=== PATIENT | female | born 1950 | race Caucasian/White ===

== ENCOUNTER → 2024-01-16 10:36 | Outpatient (REF) | payer OTHER, SELFPAY | LOC: HWWDC 10:36 | PROVIDERS: ATTENDING PHYSICIAN Obstetrics & Gynecology; FAMILY PHYSICIAN Nurse Practitioner Family | DX: Z12.31 Encounter for screening mammogram for malignant neoplasm of breast (principal) | CPT/HCPCS: 77063; 77067 ==

== ENCOUNTER 2024-04-09 21:31 | Emergency (ER) | payer OTHER, SELFPAY ==
[2024-04-09 21:33] VITALS: BP 185/110
[2024-04-10 00:26] VITALS: BP 186/92
[2024-04-10 02:49] VITALS: BP 180/84
[2024-04-10 03:04] LABS: % Basophils 0.2 % (0-2); % Eosinophils 0.3 % (0-6); % Immature Granulocytes 0.5 % (0-0.5); % Lymphocytes 16.3 % (20.5-51.1); % Monocytes 11.5 % (1.7-9.3); % Neutrophils 71.2 % (42.2-75.2); Absolute Immature Granulocytes 0.1 10^3/uL (0-0.05); Absolute Lymphocytes 1.8 10^3/uL (1.2-3.4); Absolute Monocytes 1.2 10^3/uL (0.1-0.6); Absolute Neutrophils 7.7 10^3/uL (1.4-6.5); Hematocrit 36.8 % (37.0-47.0); Hemoglobin 12.6 g/dL (12.0-16.0); Mean Corp Hgb Conc. 34.2 g/dL (33.0-37.0); Mean Corpuscular Hgb 27.9 pg (27.0-31.0); Mean Corpuscular Volume 81.4 fL (81.0-99.0); Mean Platelet Volume 10.2 fL (7.4-10.4); Nucleated Red Blood Cells % 0 %; Platelet Count 295 10^3/uL (130-400); Red Blood Cell Count 4.52 10^6/uL (4.20-5.40); White Blood Cell Count 10.8 10^3/uL (4.8-10.8)
[2024-04-10 03:27] LABS: ALT (SGPT) 17 U/L (0-35); AST (SGOT) 22 U/L (14-36); Albumin 4.4 g/dl (3.5-5.0); Alkaline Phosphatase 62 U/L (38-126); Blood Urea Nitrogen 18 mg/dl (7-17); Calcium 9.5 mg/dl (8.4-10.2); Carbon Dioxide 29 mmol/L (22-30); Chloride 99 mmol/L (98-107); Glucose 146 mg/dl (70-99); Potassium 3.6 mmol/L (3.5-5.1); Sodium 138 mmol/L (135-145); Total Bilirubin 0.6 mg/dl (0.2-1.3); eGFR > 60.00
--- NOTE | 2024-04-10 03:55 | ED.GENMED ---
History of Present Illness
<OLYA Palumbo - Last Filed: 04/10/24 06:18>
General
Chief Complaint: Headache
Source: patient
Time Seen by Provider: 04/10/24 03:05
Travel History
Have you had any contact with someone who has COVID-19?: No
Do you have any symptoms of coronavirus? Fever > 100 degrees, chills, cough, shortness of breath, sore throat, loss of taste or smell, muscle aches, or headache?: No
History of Present Illness
History of Present Illness:
73 year old female with hx of afib, HTN, hypothyroidism who presents with 6 days of worsening head ache to the back of the head. Pt states she began feeling discomfort to the her head, neck, and back. Then she developed a head pain to the occiput
region that radiates down the neck to the L shoulder blade. Pain is currently 8/10 and is described as a dull pain. She reports associated dizziness and lightheadedness and had an episode of almost passing out last night. She has pain with range of
motion of the neck. Denies trauma or previous injury to the neck or head. Denies shoulder pain, vision changes, vomiting, chest pain, SOB, numbness or tingling to the extremities. Pt saw her chiropractor yesterday with no relief and was advised to
go to the ER. She has not taken anything for pain.
Past History
<OLYA Palumbo - Last Filed: 04/10/24 06:18>
Past History
ED Past Medical History: Hypothyroidism
ED Past Surgical History: None
Social History
Tobacco: Non-smoker
Employment: Not employed
Review of Systems
<OLYA Palumbo - Last Filed: 04/10/24 06:18>
Review of Systems
Allergies reviewed?: Yes
All Other Systems: ROS reviewed and negative except as documented in HPI and ROS
Constitutional: Reports no symptoms
EENT: Reports no symptoms
Respiratory: Reports no symptoms
Cardiac: Reports no symptoms
ABD/GI: Reports no symptoms
: Reports no symptoms
Musculoskeletal: Reports muscle pain, muscle stiffness and neck pain
Skin: Reports no symptoms
Neurological: Reports dizzy and headache
Endocrine: Reports no symptoms
Hematologic/Lymphatic: Reports no symptoms
Psychiatric: Reports no symptoms
Phy Exam
<OLYA Palumbo - Last Filed: 04/10/24 06:18>
General Physical Exam
General Presentation: well appearing and no apparent distress
General age: appears stated age
General Skin: warm and dry
General Habitus: normal
General Mental: alert
General Hydration: appears well hydrated
Cardiovascular Exam
Cardiovascular Exam: regular rate/rhythm, no edema, no gallop and no murmur
Pulmonary Exam
Pulmonary Exam: lungs clear, no respiratory distress, no rales, no crackles, no rhonchi, no wheezing and no cough
Neurological Exam
Neurological Exam: alert, oriented x3, CN II-XII intact, no motor deficits and no sensory deficits
Musculoskeletal Exam
Musculoskeletal Exam: full ROM (bilateral upper extremities), neck pain and other (pain with ROM of neck in flexion, extension, and rotation. Reproducible mild tenderness to palpation to medial L shoulder blade. )
Skin Exam
Skin Exam: normal color and warm/dry
Psychiatric Exam
Psychiatric Exam: normal mood/affect
Course
<OLYA Palumbo - Last Filed: 04/10/24 06:18>
Orders/Labs/Results
Orders:
Orders
04/09/24 21:36
EKG [Electrocardiogram (*1)] Urgent
Reason for Study: Hypertension, Benign
04/09/24 21:37
EKG- Treatment ONCE
04/09/24 21:[address] [CT Head W/o Iv Contrast] Urgent
Comment:
Reason For Exam: headache
04/09/24 21:40
CBC/With Diff [Complete Blood Count/With Diff] Urgent
CMP [Comprehensive Metabolic Panel] Urgent
04/10/24 02:57
B12 [Vitamin B12] Urgent
Free T4 Urgent
TSH Reflex To Free T4 Urgent
04/10/24 04:43
Lisinopril [Zestril] 10 mg PO NOW STA
04/10/24 05:17
Acetaminophen [Tylenol] 650 mg PO NOW STA
04/10/24 05:55
Ibuprofen [Motrin] 600 mg PO NOW STA
Abnormal Lab Results
04/10/24
02:57
Hct 36.8 L %
(37.0-47.0)
Abs Immat Gran (auto) 0.1 H 10^3/uL
(0-0.05)
Absolute Neuts (auto) 7.7 H 10^3/uL
(1.4-6.5)
Absolute Monos (auto) 1.2 H 10^3/uL
(0.1-0.6)
Lymphocytes % 16.3 L %
(20.5-51.1)
Monocytes % 11.5 H %
(1.7-9.3)
BUN 18 H mg/dl
(7-17)
Glucose 146 H mg/dl
(70-99)
TSH (Reflex) 0.30 L uIU/ml
(0.47-4.68)
04/10/24 02:57
04/10/24 02:57
Vital Signs
Initial and Last Documented VS:
Initial Vital Signs
Temp Pulse Resp BP Pulse Ox
98.2 F 102 17 185/110 99
04/09/24 21:33 04/09/24 21:33 04/09/24 21:33 04/09/24 21:33 04/09/24 21:33
Last Documented Vital Signs
Temp Pulse Resp BP Pulse Ox
98.2 F 75 16 148/84 96
04/09/24 21:33 04/10/24 05:26 04/10/24 05:26 04/10/24 05:26 04/10/24 05:26
<Mauri Ledesma, DO - Last Filed: 04/10/24 06:51>
Orders/Labs/Results
Orders:
Orders
04/09/24 21:36
EKG [Electrocardiogram (*1)] Urgent
Reason for Study: Hypertension, Benign
04/09/24 21:37
EKG- Treatment ONCE
04/09/24 21:[address] [CT Head W/o Iv Contrast] Urgent
Comment:
Reason For Exam: headache
04/09/24 21:40
CBC/With Diff [Complete Blood Count/With Diff] Urgent
CMP [Comprehensive Metabolic Panel] Urgent
04/10/24 02:57
B12 [Vitamin B12] Urgent
Free T4 Urgent
TSH Reflex To Free T4 Urgent
04/10/24 04:43
Lisinopril [Zestril] 10 mg PO NOW STA
04/10/24 05:17
Acetaminophen [Tylenol] 650 mg PO NOW STA
04/10/24 05:55
Ibuprofen [Motrin] 600 mg PO NOW STA
Abnormal Lab Results
04/10/24
02:57
Hct 36.8 L %
(37.0-47.0)
Abs Immat Gran (auto) 0.1 H 10^3/uL
(0-0.05)
Absolute Neuts (auto) 7.7 H 10^3/uL
(1.4-6.5)
Absolute Monos (auto) 1.2 H 10^3/uL
(0.1-0.6)
Lymphocytes % 16.3 L %
(20.5-51.1)
Monocytes % 11.5 H %
(1.7-9.3)
BUN 18 H mg/dl
(7-17)
Glucose 146 H mg/dl
(70-99)
TSH (Reflex) 0.30 L uIU/ml
(0.47-4.68)
04/10/24 02:57
04/10/24 02:57
Vital Signs
Initial and Last Documented VS:
Initial Vital Signs
Temp Pulse Resp BP Pulse Ox
98.2 F 102 17 185/110 99
04/09/24 21:33 04/09/24 21:33 04/09/24 21:33 04/09/24 21:33 04/09/24 21:33
Last Documented Vital Signs
Temp Pulse Resp BP Pulse Ox
98.2 F 75 16 148/84 96
04/09/24 21:33 04/10/24 05:26 04/10/24 05:26 04/10/24 05:26 04/10/24 05:26
<OLYA Palumbo - Last Filed: 04/10/24 06:18>
MDM/Problems Addressed
Differential Diagnosis Includes:
muscle sprain/strain, symptomatic hypertension, cervical radiculopathy
MDM/Problems Addressed:
73 year old female who presents with back of the head pain that radiates down the neck to the L shoulder blade that began 6 days ago.
Chronic conditions affecting care: HTN, Arrhythmia (afib) and Other (hypothyroidism)
<OLYA Palumbo - Last Filed: 04/10/24 06:18>
*Critical Care Note
Total Time (30-74mins, 75-104mins- exclusive of procedures): Not Applicable
<OLYA Palumbo - Last Filed: 04/10/24 06:18>
Update Note
Update Note:
04/10/24 0554: Pt reevaluated. BP decreased to 148/84 after Lisinopril. Pt also took a dose of tylenol. No change to head ache. Pt offered ibuprofen and she is agreeable.
<Mauri Ledesma DO - Last Filed: 04/10/24 06:51>
Update Note
Update Note:
04/10/24 0554: Pt reevaluated. BP decreased to 148/84 after Lisinopril. Pt also took a dose of tylenol. No change to head ache. Pt offered ibuprofen and she is agreeable.
04/10/2024 0650 AM: Patient resting comfortably. She states her headache is improved somewhat. She still does not want any further medications. She will follow-up with neurology. Patient being discharged in improved condition.
ED Attending Note
<OLYA Palumbo - Last Filed: 04/10/24 06:18>
-
Portions of this chart may have been created with voice recognition software.� Occasional wrong word or��sound alike� substitutions may have occurred due to the inherent limitations of voice recognition software.
<Mauri Ledesma DO - Last Filed: 04/10/24 06:51>
ED Attending Note
Patient seen and examined by attending physician: Yes
I performed the substantive portion of visit, reviewed & personally made and approve the management plan that is documented in note by myself or MICHELLE.: Yes
ED Attending Note:
This is a pleasant 73-year-old female who presents with 6 days of progressively worsening headache. She states that the headache is in the left posterior part of the head. She went to the chiropractor for treatment. The chiropractor was unable to
help her and advised her to come to the emergency department. She came to the emergency department for evaluation of headache.. She denies head trauma. Denies chest pain or shortness of breath. Patient is adverse to pain medications. She did
not take anything for this pain. Patient was seen in conjunction with the PA student. I have reviewed and agree with the history and treatment plan presented. On my independent physical exam, patient is awake, alert, and oriented x3, sitting on
the side of bed in minimal acute distress. Funduscopic exam is within normal limits pupils are equal and round and reactive to light and accommodation. No vertical or horizontal nystagmus. No nuchal rigidity. No midline neck tenderness. Heart
is regular rate and rhythm. Lungs are clear to auscultation bilaterally. No wheezes rales or rhonchi present. Moves all 4 extremities. Cranial nerves III through XII grossly intact
Differential diagnosis includes migraine headache, atypical migraine, musculoskeletal pain
Initially, patient refused fluids, and any medications. She stated that she is here because 'she wants to know why she has a headache. '. I was able to tell her that she did not have a bleed or any other obvious CAT scan findings. Given that she
had no focal neurodeficits, no nuchal rigidity, no fever or chills I feel that CVA, meningitis are less likely.
Patient is still considering any type of intervention at this time.
Gave patient a copy of the labs and CT scan preliminary report.
Discharge Plan
Departure
Patient Disposition: Home (Routine Discharge)
Date of Disposition: 04/10/24
Time of Disposition: 06:49
Patient with high blood pressure during this ER visit?: Yes
Condition: Good
Discharge Problem:
Headache
Instructions: Headache, Adult (DC)
Prescriptions:
No Action
levothyroxine 88 MCG tablet
88 mcg PO DAILY
Patient Comments:
Pt not positive but thinks she took all her am meds today about 7am
montelukast 10 MG tablet
10 mg PO QPM
Cardia Xt
120 mg PO DAILY
Patient Comments:
(24hr)
triamterene-hydrochlorothiazid 37.5 MG/25 MG capsule
1 cap PO DAILY
oxycodone-acetaminophen 5 MG/325 MG tablet
1 tab PO Q6HPRN PRN (Reason: pain) Qty: 10 0RF
Referrals:
Esau Abbott MD [Active] - Call in 1-3 days for appt
UNKNOWN - PT DOES,NOT KNOW [Family Provider] -
Activity Restrictions/Additional Instructions:
It was a pleasure meeting you and taking part in your care. We hope for your continued healing and wellness.
Please read discharge instructions in their entirety. However, they are for general education and may not describe your exact diagnosis at discharge. Information on your ER visit and medical conditions were discussed with you along with appropriate
follow up information...
If indicated, please take your medications as instructed and indicated on discharge paperwork.
Please schedule a follow up appointment as directed. Call to schedule an appointment
Please return to the emergency department with ANY change in, persisting, or worsening of symptoms. If any of your symptoms do not improve, or persist, or become more severe within 6-12 hours, please return to the emergency department for further
care.
Please return to the emergency department if you develop a headache, neck pain/stiffness, fever greater than 100.4F, chest pain, shortness of breath, persistent nausea, vomiting, slurred speech, difficulty walking, numbness/tingling, weakness, signs
of infection or any other symptoms that are worrisome to you.
If you have any questions or concerns please do not hesitate to call the Hospital at
Interventions
Interventions:
*Risk Screen - Suicide Last Done: 04/09/24 21:33
*General Assessment Last Done: 04/09/24 21:33
*Neglect/Abuse Screening Last Done: 04/09/24 21:33
ED- Neurological Assessment Last Done: 04/10/24 03:00
Discharge Date and Time
Print Language: KYRGYZ
[2024-04-10 04:10] LABS: Vitamin B12 869 pg/ml (239-931)
[2024-04-10 04:19] LABS: Free T4 1.25 ng/dl (0.78-2.19)
[2024-04-10] MEDS: ZESTRIL 10 MG PO (04:59)
[2024-04-10] MEDS: TYLENOL 650 MG PO (05:23)
[2024-04-10 05:26] VITALS: BP 148/84
[2024-04-10] MEDS: MOTRIN 600 MG PO (06:05)
== END 2024-04-10 07:36 | disposition home or self-care (01) ==
LOC: EMR 21:31
PROVIDERS: Emergency Medicine; EMERGENCY PHYSICIAN Student in an Organized Health Care Education/Training Program; FAMILY PHYSICIAN Nurse Practitioner Family
DX: R51.9 Headache, unspecified (principal); I10 Essential (primary) hypertension; E03.9 Hypothyroidism, unspecified
CPT/HCPCS: 99284; 70450; 80053; 82607; 84439; 84443; 85025; 93005

== ENCOUNTER → 2024-05-14 10:54 | Outpatient (REF) | payer OTHER, SELFPAY | LOC: HWRAD 10:54 | PROVIDERS: ATTENDING PHYSICIAN Nurse Practitioner Family | DX: R10.32 Left lower quadrant pain (principal) | CPT/HCPCS: 76882 ==

== ENCOUNTER → 2024-05-24 12:41 | Outpatient (REF) | payer OTHER, SELFPAY | LOC: HWRAD 12:41 | PROVIDERS: ATTENDING PHYSICIAN Nurse Practitioner Family | DX: R19.09 Other intra-abdominal and pelvic swelling, mass and lump (principal) | CPT/HCPCS: 72193; Q9967 ==

== ENCOUNTER → 2024-06-03 06:50 | Outpatient (REF) | payer OTHER, SELFPAY ==
[2024-06-03 07:44] VITALS: BP 135/66; BP_SYST 70
[2024-06-03 10:21] VITALS: BP 134/70
== END ==
LOC: RADI 06:50
PROVIDERS: ATTENDING PHYSICIAN Nurse Practitioner Family
DX: R19.00 Intra-abdominal and pelvic swelling, mass and lump, unspecified site (principal); Z53.8 Procedure and treatment not carried out for other reasons
CPT/HCPCS: 76380

== ENCOUNTER → 2024-07-03 10:57 | Outpatient (REF) | payer OTHER, SELFPAY | LOC: MRI 3T 10:57 | PROVIDERS: ATTENDING PHYSICIAN Surgery; FAMILY PHYSICIAN Nurse Practitioner Family | DX: K63.89 Other specified diseases of intestine (principal) | CPT/HCPCS: 72197; 74183; A9585 ==

== ENCOUNTER 2024-08-16 12:54 | Inpatient (IN) | payer OTHER, SELFPAY ==
[2024-08-08 09:04] VITALS: BMI 30.7
[2024-08-08 10:33] LABS: Hematocrit 38.8 % (37.0-47.0); Mean Corp Hgb Conc. 33.5 g/dL (33.0-37.0); Mean Corpuscular Hgb 29.1 pg (27.0-31.0); Mean Corpuscular Volume 86.8 fL (81.0-99.0); Mean Platelet Volume 11.4 fL (7.4-10.4); Platelet Count 266 10^3/uL (130-400); Red Blood Cell Count 4.47 10^6/uL (4.20-5.40); Red Cell Dist. Width 13.8 % (11.5-14.5); White Blood Cell Count 6.7 10^3/uL (4.8-10.8)
[2024-08-08 11:08] LABS: ALT (SGPT) 16 U/L (0-35); AST (SGOT) 21 U/L (14-36); Albumin 4.1 g/dl (3.5-5.0); Alkaline Phosphatase 52 U/L (38-126); Blood Urea Nitrogen 28 mg/dl (7-17); Calcium 9.4 mg/dl (8.4-10.2); Carbon Dioxide 28 mmol/L (22-30); Chloride 100 mmol/L (98-107); Estimated Creatinine Clearance 54 ml/min; Glucose 101 mg/dl (70-99); Potassium 3.7 mmol/L (3.5-5.1); Sodium 140 mmol/L (135-145); Total Bilirubin 0.5 mg/dl (0.2-1.3); eGFR 59.86
[2024-08-16] VITALS (17 sets, daily range): BP systolic 98–144; BP diastolic 49–75; BMI 30.7
--- NOTE | 2024-08-16 12:08 | HP.FOC2 ---
Focused History & Physical
Chief Complaint
HPI:
Chief Complaint: Small bowel mass
HPI / Indication for Planned Procedure: Patient is a 73-year-old female who has been recently found to have an incidental small bowel/mesenteric mass during radiographic imaging for a possible left inguinal hernia. CT imaging identified a 5.2 cm
mass with surrounding fat stranding closely associated with adjacent loops of small bowel within the central abdomen. She was subsequently referred for attempted IR biopsy which was unsuccessful at finding any clear window. After my initial
evaluation we obtained MRI enterography which confirmed the presence of an enhancing mass involving a small bowel loop in the adjacent mesentery with a small nodular foci of enhancement within the mesentery adjacent to the mass but no additional
periaortic or aortocaval lymphadenopathy. She presents today for definitive surgical resection.
Relevant Past Medical History: Other (Allergic rhinitis, hypoparathyroidism, hypertension, history of anemia, hypothyroidism, vitiligo, asthma)
Relevant Social History: Negative
Relevant Family History: Negative
Relevant Past Surgical History: Positive for (Pelvic floor surgery, vaginal polypectomy)
Review of Systems
Review of Pertinent Systems: All Systems Negative
Medication
See Medication form for detailed medications: Yes
Medication List (including Herbals & OTC):
montelukast 10 mg tablet 10 mg PO QPM 06/16/11
triamterene 37.5 mg-hydrochlorothiazide 25 mg capsule 1 cap PO DAILY 06/16/11
cyanocobalamin (vitamin B-12) 1,000 mcg tablet (Vitamin B-12) 1,000 mcg PO DAILY 06/03/24
diltiazem HCl 120 mg capsule,extended release 24 hr (Cartia XT) 120 mg PO HS 06/03/24
levothyroxine 125 mcg tablet 125 mcg PO Q48H 06/03/24
lisinopril 5 mg tablet 5 mg PO HS 06/03/24
albuterol sulfate 90 mcg/actuation aerosol inhaler 2 puff inhalation Q6H PRN SOB 08/09/24
cyanocobalamin (vitamin B-12) 1,000 mcg/mL injection syringe 1,000 mcg MONTHLY 08/09/24
levothyroxine 150 mcg tablet 150 mcg PO Q48H 08/09/24
Medications Reviewed: Yes
Allergies and Reactions
Patient has Allergies: Yes
Noted Allergies and Reactions:
Allergy/AdvReac Type Severity Reaction Status Date / Time
acetaminophen [From Percocet] Allergy DIZZINESS Verified 08/09/24 09:39
adhesive Allergy Rash Verified 08/09/24 09:39
oxycodone [From Percocet] Allergy DIZZINESS Verified 08/09/24 09:39
codeine AdvReac Nausea Verified 08/09/24 09:39
cyclobenzaprine AdvReac WEAKNESS Verified 08/09/24 09:39
Pertinent Physical Exam
All Other Systems: Negative
Head/Neck: Normal
Lungs: Normal
Heart: Normal
Abdomen: Normal and Other (Reducible left inguinal hernia)
Extremities: Normal
Neurological: Normal
Diagnosis / Assessment
73-year-old female presenting for management of recently discovered small bowel/mesenteric mass
Plan / Procedure
Diagnostic laparoscopy, laparoscopic assisted small bowel resection/resection of mesenteric mass
Anesthesia/Sedation to be done by Anesthesia Provider: Yes
--- NOTE | 2024-08-16 13:48 | W.SUR.PREOP ---
Pre-Operative Surgical Note
-
I have examined this patient prior to the performance of the scheduled procedure.
The patient's condition is unchanged from the time of the current History and
Physical and the patient is able to undergo the scheduled procedure.
[2024-08-16] MEDS: TYLENOL 1000 MG PO (13:53)
[2024-08-16] MEDS: NORMOSOL-R/PLASMALYTE-A 1000 IV (13:54)
[2024-08-16] MEDS: DILAUDID 0.5 MG IV ×2 (17:04→17:45)
--- NOTE | 2024-08-16 17:05 | W.IMMPOSTOP ---
Addendum entered and electronically signed by Manuel Santacruz MD 08/16/24 17:35:
#[id number]
Original Note:
Surgical Immed Post Op Note
-
Primary Surgeon: Neeta
Assisting Surgeon: Kely David PA-c
Pre-op Diagnosis: Small Bowel Mass
Post-op Diagnosis: Small Bowel Mass
Procedure Performed: Laparoscopic Assisted SBR
Anesthesia Type: GETA + 0.25% Marcaine
Specimen / Cultures: Small Bowel Mass
Estimated Blood Loss: 20mL
Complications: none immediate
Operative Findings: small bowel mass infiltrating into small bowel mesentery located within distal jejunum ~100cm from ligament of Treitz. approximately 60cm small bowel resected with grossly negative bowel and mesenteric margins. total small
bowel length after resection ~280cm. side to side anastomosis with PORTER purple 80 stapler. no evidence of metastatic disease.
family updated post op in waiting area
The assistance of Kely Edwards was required due to the complexity of the procedure. During the procedure Kely kidd assisted with retraction, resection/anastomosis, and closure of the surgical sites.
[2024-08-16] MEDS: DEMEROL 12.5 MG IV ×2 (18:05→18:26)
[2024-08-16] MEDS: NSS 1000 IV (18:11)
--- NOTE | 2024-08-16 19:38 | PTCARENOTE ---
patient arrived to @ south from PACU. AAOx3, very pleasant, oriented to room. 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 Rico draining clear yellow urine, IVF infusing per order. VSS, NSR on monitor. at bed side. Assessment on going.
--- NOTE | 2024-08-16 19:44 | SUR.PHASEI ---
patient in pacu post bowel resection, medicated for pain and shivers - with Dilaudid and demerol - pain as high as 8 - down to 0/10 at 1900. Vss - bp lower after pain controlled but WNL. incision line clean - Dr Santacruz visits in pacu. urine
output adequate - transfer to [address] [place] [address] when bed available and hand off at bedside. Family kept updated.
[2024-08-16] MEDS: LOPRESSOR IV ×2 (19:53→23:59)
[2024-08-16] MEDS: OFIRMEV 100 IV (21:34)
[2024-08-17] MEDS: NSS 1000 IV ×3 (01:30→19:49)
[2024-08-17] MEDS: OFIRMEV 100 IV ×2 (02:04→07:47)
[2024-08-17 03:19] VITALS: BP 120/55
[2024-08-17] MEDS: DILAUDID 0.25 MG IV (04:48)
[2024-08-17 05:37] LABS: Mean Corp Hgb Conc. 33.3 g/dL (33.0-37.0); Mean Corpuscular Hgb 28.7 pg (27.0-31.0); Mean Corpuscular Volume 86.1 fL (81.0-99.0); Mean Platelet Volume 11.1 fL (7.4-10.4); Platelet Count 276 10^3/uL (130-400); Red Blood Cell Count 4.18 10^6/uL (4.20-5.40); Red Cell Dist. Width 13.8 % (11.5-14.5); White Blood Cell Count 14.2 10^3/uL (4.8-10.8)
[2024-08-17 06:02] LABS: Blood Urea Nitrogen 22 mg/dl (7-17); Calcium 8.5 mg/dl (8.4-10.2); Carbon Dioxide 27 mmol/L (22-30); Chloride 100 mmol/L (98-107); Estimated Creatinine Clearance 60 ml/min; Glucose 138 mg/dl (70-99); Potassium 4.3 mmol/L (3.5-5.1); Sodium 137 mmol/L (135-145); eGFR > 60.00
[2024-08-17] MEDS: LOPRESSOR IV ×3 (06:21→18:13)
[2024-08-17 06:55] VITALS: BP 120/56
--- NOTE | 2024-08-17 10:26 | W.PN.GS2 ---
Addendum entered and electronically signed by Manuel Santacruz MD 08/17/24 10:35:
pt seen and examined with SUPERVISOR FIBER LOCKING , agree with documented progress note
reports incisional pain
no nausea
has not been OOB yet
AFVSS
NAD AAOx3
ABD: soft, ND, mild TTP at incisions
incisions with glue dressing, no erythema, no drainage
A/P: POD#1 lap assisted SBR for mid small bowel mass
clear liquid diet for comfort
start toradol ATC
lovenox for VTEp
okay for stewart to come out when ambulatory
Original Note:
Today's Communication / Plan
-
Trial of clears
Assessment / Plan
-
73 yo female presenting for operative management of small bowel mass now POD #1 lap assisted SBR
AFVSS
Labs stable post op with mild reactive leukocytosis
Await return of bowel function
--Trial of clears
--D/C ofirmev and start IV toradol, continue prn dilaudid
--c/w IVF
--Trend labs
--OOB/IS
--hold PO meds until more signs of ROBF
--discontinue stewart once OOB/ambulating
--VTE ppx with lovenox and scds
Subjective Data
-
Date of Service: August 17, 2024
Patient seen and examined at bedside with Dr. Santacruz. Denies n/v. Not passing flatus yet. Some soreness to midline incision. Questions addressed.
Objective Data
-
Intake and Output
08/16/24 08/17/24 08/18/24
06:59 06:59 06:59
Intake Total 1984
Output Total 650 / 650
Balance 1335 / 1335
Intake:
Oral fluids 20 /
IV fluids (Total) 1765 / 1765
normosol 200 / 200
nss 125 / 125
IV piggybacks 200 / 200
Output:
Urine, Stewart 650 / 650
Vital Signs
Temp Pulse Resp BP Pulse Ox
98.9 F 86 14 120/56 95
08/17/24 06:55 08/17/24 06:55 08/17/24 06:55 08/17/24 06:55 08/17/24 06:55
Lab Results
08/17/24 04:34
08/17/24 04:34
Calcium 8.5 mg/dl (8.4-10.2) 08/17/24 04:34
Total Bilirubin 0.5 mg/dl (0.2-1.3) 08/08/24 08:56
AST 21 U/L (14-36) 08/08/24 08:56
ALT 16 U/L (0-35) 08/08/24 08:56
Alkaline Phosphatase 52 U/L (38-126) 08/08/24 08:56
Total Protein 7.0 g/dl (6.3-8.2) 08/08/24 08:56
Albumin 4.1 g/dl (3.5-5.0) 08/08/24 08:56
Physical Exam
-
NAD
ABD soft, mild incisional tenderness, ND, SUPERVISOR FIBER LOCKING
Incisions well approximated with intact glue
[2024-08-17] MEDS: TORADOL 10 MG IV ×3 (10:53→22:54)
[2024-08-17 10:57] VITALS: BP 127/65
--- NOTE | 2024-08-17 13:57 | CM ---
CM met with pt and family at bedside.
Confirmed PCP is Cheyanne Ambriz and pharmacy is [facility] in [facility]. + prescription plan.
Prior to admission pt ind with amb using no AD and ind with adl's. No DME needs prior. + It Program Auditor.
Pt has no HC or SNF history.
Resides with spouse in 2SH bedroom/bathroom on 2nd floor, powder room on first, 1+ 1 HEIDE home.
Anticipate no skilled dc needs.
CM to follow and watch for needs.
[2024-08-17 15:02] VITALS: BP 133/60
[2024-08-17] MEDS: LOVENOX 40 MG SC (18:21)
[2024-08-17 19:10] VITALS: BP 131/63
[2024-08-17] MEDS: LOPRESSOR 5 MG IV (22:55)
[2024-08-17 23:37] VITALS: BP 130/61
[2024-08-18 03:54] VITALS: BP 141/73
[2024-08-18] MEDS: NSS 1000 IV (04:17)
[2024-08-18] MEDS: TORADOL 10 MG IV ×4 (05:48→22:57)
[2024-08-18] MEDS: LOPRESSOR 5 MG IV (05:49)
[2024-08-18 07:00] VITALS: BP 148/70
[2024-08-18 08:33] LABS: Hematocrit 31.7 % (37.0-47.0); Hemoglobin 10.6 g/dL (12.0-16.0); Mean Corp Hgb Conc. 33.4 g/dL (33.0-37.0); Mean Corpuscular Hgb 29.4 pg (27.0-31.0); Mean Corpuscular Volume 87.8 fL (81.0-99.0); Mean Platelet Volume 11.3 fL (7.4-10.4); Platelet Count 238 10^3/uL (130-400); Red Blood Cell Count 3.61 10^6/uL (4.20-5.40); White Blood Cell Count 8.4 10^3/uL (4.8-10.8)
[2024-08-18] MEDS: DYAZIDE 1 CAPSULE PO (08:48)
[2024-08-18] MEDS: SYNTHROID 125 MCG PO (08:48)
[2024-08-18 09:09] LABS: Blood Urea Nitrogen 22 mg/dl (7-17); Carbon Dioxide 26 mmol/L (22-30); Chloride 105 mmol/L (98-107); Estimated Creatinine Clearance 54 ml/min; Glucose 90 mg/dl (70-99); Potassium 3.9 mmol/L (3.5-5.1); Sodium 139 mmol/L (135-145); eGFR 59.86
--- NOTE | 2024-08-18 10:17 | W.PN.GS2 ---
Addendum entered and electronically signed by Manuel Santacruz MD 08/18/24 10:28:
Patient seen and examined with nurse practitioner. Agree with documented progress note.
Comfortably sitting up in couch in hospital room
Tolerating clear liquids, no nausea, no abdominal pain or cramps other than incisional discomfort
Passing flatus on occasion, no bowel movements
Does not feel distended or bloated
AFVSS
NAD AAOx3
ABD: Soft, nondistended, mild incisional tenderness, no rebound/rigidity/guarding
Incisions with glue dressings no open wounds or drainage minimal localized ecchymosis, no significant erythema
A/P: POD #2 lap assisted small bowel resection for small bowel mass
Full liquid diet and cautious dietary advancement as tolerated with low fibrous foods and smaller portions
Dietary counseling provided
Okay to stop IV fluids
Continue Toradol
Original Note:
Today's Communication / Plan
-
Advance diet as tolerated, resume home meds
Assessment / Plan
-
73 yo female presenting for operative management of small bowel mass now POD #2 lap assisted SBR
AFVSS
Labs stable post op, leukocytosis resolved. Mild acute anemia secondary to intraoperative losses/hemodilution. No active bleeding suspected.
Passing flatus
Voiding s/p removal of stewart
Following expected post op course
--Full liquid diet and ADAT to LRD
--Continue IV toradol, continue prn dilaudid
--c/w IVF
--OOB/IS
--Resume home PO meds and d/c IV metoprolol and telemetry
--Path pending
--VTE ppx with lovenox and scds
Subjective Data
-
Date of Service: August 18, 2024
Patient seen and examined at bedside with Dr. Santacruz. Denies pain or nausea. Tolerating clears. Family bringing in food from home as she does not like the food from the hospital kitchen. Passing flatus.
Objective Data
-
Intake and Output
08/17/24 08/18/24 08/19/24
06:59 06:59 06:59
Intake Total 1984 4520 / 4520
Output Total 650 / 650 1050 / 1050
Balance 1335 / 1335 3470 / 3470
Intake:
Oral fluids 20 / 20 1640 / 1640
IV fluids (Total) 1765 / 1765 2880 / 2880
normosol 200 / 200
nss 125 / 125
IV piggybacks 200 / 200
Output:
Urine, Stewart 650 / 650 150 / 150
Urine, Voided 900 / 900
Other:
Number of approximated SMALL 2
amounts of urine
Number of approximated MODERATE 1
amounts of urine
Vital Signs
Temp Pulse Resp BP Pulse Ox
97.6 F 70 16 148/70 97
08/18/24 07:00 08/18/24 08:48 08/18/24 07:00 08/18/24 08:48 08/18/24 07:00
Lab Results
08/18/24 06:30
08/18/24 06:30
Calcium 8.0 mg/dl (8.4-10.2) L 08/18/24 06:30
Total Bilirubin 0.5 mg/dl (0.2-1.3) 08/08/24 08:56
AST 21 U/L (14-36) 08/08/24 08:56
ALT 16 U/L (0-35) 08/08/24 08:56
Alkaline Phosphatase 52 U/L (38-126) 08/08/24 08:56
Total Protein 7.0 g/dl (6.3-8.2) 08/08/24 08:56
Albumin 4.1 g/dl (3.5-5.0) 08/08/24 08:56
Physical Exam
-
NAD
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
Incisions well approximated with intact glue, erythema to midline incision
[2024-08-18 14:38] VITALS: BP 120/63
[2024-08-18] MEDS: SINGULAIR 10 MG PO (17:39)
[2024-08-18] MEDS: LOVENOX 40 MG SC (17:39)
[2024-08-18] MEDS: ZESTRIL 5 MG PO (22:56)
[2024-08-18] MEDS: CARDIZEM CD 120 MG PO (22:56)
[2024-08-18 23:04] VITALS: BP 142/72
[2024-08-19] MEDS: SYNTHROID 150 MCG PO (05:23)
[2024-08-19] MEDS: TORADOL 10 MG IV (05:23)
--- NOTE | 2024-08-19 07:20 | W.PN.GS2 ---
Addendum entered and electronically signed by Prince Edwards MD 08/19/24 11:07:
I saw and examined the patient independently.
The Senior Administrative Associate's note was reviewed and I agree with the note, assessment and plan except where noted below.
Comment: This is a 73-year-old female postoperative day 3 lap assisted SBR for small bowel mass. Doing well, expected postoperative course.
Low residue diet
Dispo planning
Original Note:
Today's Communication / Plan
-
Discharge home with instructions for 2-3w f/u. Will leave wound care/activity instructions in discharge paperwork.
Assessment / Plan
-
73 yo F who presented to for operative management of SB mass after failed biopsy, POD #3 lap assisted SBR
- AVSS
- On LRD, tolerating well
- IV pain requirements minimal, OK to take PO at home
- Ambulating well, at baseline
- Resume home PO meds
- Pathology pending
OK to discharge home today with OP F/u.
Subjective Data
-
No acute events overnight. Feeling well, ambulating well. She has not had a BM yet, but is passing gas and able to urinate. She has minimal/no abdominal pain. There were no acute events overnight.
Objective Data
-
Intake and Output
08/18/24 08/19/24 08/20/24
06:59 06:59 06:59
Intake Total 4520 / 4520 1919
Output Total 1050 / 1050
Balance 3470 / 3470 1919
Intake:
Oral fluids 1640 / 1640 1919
IV fluids (Total) 2880 / 2880
Output:
Urine, Rico 150 / 150
Urine, Voided 900 / 900
Other:
Number of approximated SMALL 2
amounts of urine
Number of approximated MODERATE 1
amounts of urine
Number of approximated LARGE 2
amounts of urine
Vital Signs
Temp Pulse Resp BP Pulse Ox
98.3 F 76 20 142/72 97
08/18/24 23:04 08/18/24 23:04 08/18/24 23:04 08/18/24 23:04 08/18/24 23:04
Lab Results
08/18/24 06:30
08/18/24 06:30
Calcium 8.0 mg/dl (8.4-10.2) L 08/18/24 06:30
Total Bilirubin 0.5 mg/dl (0.2-1.3) 08/08/24 08:56
AST 21 U/L (14-36) 08/08/24 08:56
ALT 16 U/L (0-35) 08/08/24 08:56
Alkaline Phosphatase 52 U/L (38-126) 08/08/24 08:56
Total Protein 7.0 g/dl (6.3-8.2) 08/08/24 08:56
Albumin 4.1 g/dl (3.5-5.0) 08/08/24 08:56
Physical Exam
-
General: NAD. Well appearing, nontoxic. AAOx3
Abdominal: Soft, nondistended, NTTP. Port sites are clean and dry with surgical glue. There is some scattered ecchymotic lesions surrounding the umbilicus which are nonblanching, nontender. The umbilical surgical site is clean and well appearing
without drainage, erythema or induration.
[2024-08-19 07:51] VITALS: BP 146/71
[2024-08-19] MEDS: DYAZIDE 1 CAPSULE PO (07:53)
--- NOTE | 2024-08-19 09:34 | W.DCSUMMARY ---
Discharge Summary
Discharge Data
Date of Admission: 08/16/24
Date of Discharge: 08/19/24
-
Pending Results: No
Hospital Course
Ms Riely is a 73 yo female who was incidentally found to have a small bowel/mesenteric mass on recent abdominal imaging who presented this admission for scheduled operative management. She underwent a laparoscopic assisted small bowel resection
and tolerated the procedure well without complication. Pathology was sent and pending. Post operatively, she was able to have diet advanced and well tolerated with evidence of bowel recovery. Pain was well managed with NSAIDs. She was discharged to
home for outpatient follow up in the coming weeks.
Discharge Plan
-
Patient Disposition: Home (Routine Discharge)
Discharge Diagnosis/Procedures: Laparoscopic assisted small bowel resection
Condition: Good
Diet: Low Fiber
Activity: No strenuous activity
Additional Activity: Do not lift over 15lbs for the next 4-6 weeks. Wear abdominal binder for comfort with activity.
Driving Restrictions: Wait until comfortable twisting
Bathing Restrictions: OK to Shower
Wound Care: Wash incisions gently with soap and water. The glue over your incisions will flake off on its own in 2-3 weeks. Beneath the glue are dissolving sutures. Avoid picking or scrubbing off the glue. Do not apply creams or ointments to your
incisions.
Activity Restrictions/Additional Instructions:
Call your surgeon if you develop nausea with vomiting, worsening abdominal pain or a fever >100.5
Referrals:
Cheyanne Santamaria CRNP [Family Provider] -
Manuel Santacruz MD [Active] - in two to three weeks
Prescriptions:
New
ibuprofen 200 mg tablet
400 - 600 mg PO Q6HPRN PRN (Reason: moderate pain) Qty: 1 0RF
Continued
montelukast 10 MG tablet
10 mg PO QPM
triamterene-hydrochlorothiazid 37.5 MG/25 MG capsule
1 cap PO DAILY
cyanocobalamin (vitamin B-12) [Vitamin B-12] 1,000 mcg Tablet
1,000 mcg PO DAILY
levothyroxine 125 mcg Tablet
125 mcg PO Q48H
diltiazem HCl [Cartia XT] 120 mg Capsule,Extended Release 24hr
120 mg PO HS
lisinopril 5 mg Tablet
5 mg PO HS
levothyroxine 150 mcg Tablet
150 mcg PO Q48H
cyanocobalamin (vitamin B-12) 1,000 mcg/mL Syringe
1,000 mcg MONTHLY
albuterol sulfate 90 mcg/actuation Hfa Aerosol Inhaler
2 puff INHALATION Q6H PRN (Reason: SOB)
Discharge Orders:
Discharge Patient (As Directed); Ordered 08/19/24
Ordered By: Delmy Alonso
Discharge Date and Time
Print Language: CHADIAN
--- NOTE | 2024-08-19 10:04 | CM ---
Pt for discharge today
Met with pt
Reports has ride home when discharged
Reviewed IMM
Plan - home no needs
== END 2024-08-19 11:12 | disposition home or self-care (01) | DRG 983 ==
LOC: 2 SOUTH 12:54
PROVIDERS: ADMITTING PHYSICIAN Surgery; FAMILY PHYSICIAN Nurse Practitioner Family
PROC: 0DB80ZZ Excision of Small Intestine, Open Approach (ICD-10-PCS; 2024-08-16)
DX: D48.114 Desmoid tumor, intraabdominal (principal); R19.09 Other intra-abdominal and pelvic swelling, mass and lump; K40.90 Unilateral inguinal hernia, without obstruction or gangrene, not specified as recurrent; E03.9 Hypothyroidism, unspecified; I10 Essential (primary) hypertension; J45.909 Unspecified asthma, uncomplicated; E20.9 Hypoparathyroidism, unspecified; D64.9 Anemia, unspecified; L80 Vitiligo; Z79.890 Hormone replacement therapy; Z88.6 Allergy status to analgesic agent; Z88.5 Allergy status to narcotic agent; Z88.8 Allergy status to other drugs, medicaments and biological substances; Z91.048 Other nonmedicinal substance allergy status
CPT/HCPCS: 88309; 36415; 80048; 80053; 85027; 86850; 86900; 86901; 88341; 88342; 93005; C1776; J1335

== ENCOUNTER → 2024-12-19 08:19 | Outpatient (REF) | payer OTHER, SELFPAY | LOC: RAD 08:19 | PROVIDERS: ATTENDING PHYSICIAN Internal Medicine Hematology & Oncology; FAMILY PHYSICIAN Nurse Practitioner Family; REFERRING PHYSICIAN Surgery | DX: I95.0 Idiopathic hypotension (principal) | CPT/HCPCS: 71260; 74177; Q9967 ==

== ENCOUNTER → 2025-01-16 11:09 | Outpatient (REF) | payer OTHER, SELFPAY | LOC: HWWDC 11:09 | PROVIDERS: ATTENDING PHYSICIAN Obstetrics & Gynecology; FAMILY PHYSICIAN Nurse Practitioner Family | DX: Z12.31 Encounter for screening mammogram for malignant neoplasm of breast (principal) | CPT/HCPCS: 77063; 77067 ==

== ENCOUNTER 2025-02-14 06:17 | Day surgery (SDC) | payer OTHER, SELFPAY ==
[2025-01-31 10:55] LABS: Hemoglobin 11.3 g/dL (12.0-16.0); Mean Corp Hgb Conc. 32.3 g/dL (33.0-37.0); Mean Corpuscular Hgb 25.7 pg (27.0-31.0); Mean Corpuscular Volume 79.5 fL (81.0-99.0); Mean Platelet Volume 10.9 fL (7.4-10.4); Platelet Count 298 10^3/uL (130-400); Red Cell Dist. Width 14.6 % (11.5-14.5); White Blood Cell Count 6.3 10^3/uL (4.8-10.8)
[2025-01-31 13:09] VITALS: BMI 29.8
[2025-01-31 15:10] LABS: Blood Urea Nitrogen 28 mg/dl (7-17); Calcium 9.4 mg/dl (8.4-10.2); Carbon Dioxide 29 mmol/L (22-30); Chloride 103 mmol/L (98-107); Estimated Creatinine Clearance 57 ml/min; Glucose 99 mg/dl (70-99); Potassium 4.5 mmol/L (3.5-5.1); Sodium 140 mmol/L (135-145); eGFR 59.49
[2025-02-14] VITALS (11 sets, daily range): BP systolic 107–142; BP diastolic 55–76; BMI 29.8
[2025-02-14] MEDS: TYLENOL 1000 MG PO (08:39)
--- NOTE | 2025-02-14 09:39 | HP.FOC2 ---
Focused History & Physical
Chief Complaint
HPI:
Chief Complaint: Left inguinal hernia; left lateral buttock/hip skin hemangioma
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 She also has a left inguinal/femoral hernia which has become
progressively symptomatic. She presents today for scheduled operative correction. Incidentally she has a large skin lesion in the left buttock area that has been enlarging in size and appears externally to be consistent with a hemangioma we will
be excising it for definitive management and pathologic review.
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
Relevant Social History: Negative
Relevant Family History: Negative
Relevant Past Surgical History: Positive for (Repair of cystocele/rectocele, laparoscopic assisted small bowel resection)
Review of Systems
Review of Pertinent Systems: All Systems Negative
Medication
See Medication form for detailed medications: Yes
Medication List (including Herbals & OTC):
montelukast 10 mg tablet 10 mg PO QPM breathing issues/allergy 06/16/11
triamterene 37.5 mg-hydrochlorothiazide 25 mg capsule 1 cap PO DAILY Fluid Retention/Swelling 06/16/11
cyanocobalamin (vitamin B-12) 1,000 mcg tablet (Vitamin B-12) 1,000 mcg PO DAILY Supplement 06/03/24
diltiazem HCl 120 mg capsule,extended release 24 hr (Cartia XT) 120 mg PO HS Blood Pressure 06/03/24
lisinopril 5 mg tablet 5 mg PO HS Blood Pressure 06/03/24
albuterol sulfate 90 mcg/actuation aerosol inhaler 2 puff inhalation Q6H PRN SOB 08/09/24
levothyroxine 150 mcg tablet 150 mcg PO DAILY Thyroid 08/09/24
ferrous sulfate 324 mg (65 mg iron) tablet,delayed release 324 mg PO Q OTHER DAY 02/14/25
Medications Reviewed: Yes
Allergies and Reactions
Patient has Allergies: Yes
Noted Allergies and Reactions:
Allergy/AdvReac Type Severity Reaction Status Date / Time
acetaminophen [From Percocet] Allergy DIZZINESS Verified 02/14/25 08:29
adhesive Allergy Rash Verified 02/14/25 08:29
codeine Allergy Nausea Verified 02/14/25 08:29
cyclobenzaprine Allergy WEAKNESS Verified 02/14/25 08:29
oxycodone [From Percocet] Allergy DIZZINESS Verified 02/14/25 08:29
Pertinent Physical Exam
All Other Systems: Negative
Head/Neck: Normal
Lungs: Normal
Heart: Normal
Abdomen: Other (Reducible left inguinal hernia)
Extremities: Normal
Neurological: Normal
Other: Left lateral buttock pedunculated 3 cm skin lesion
Diagnosis / Assessment
74-year-old female presenting for scheduled operative correction symptomatic left inguinal hernia and removal of left lateral buttock skin lesion
Plan / Procedure
Robotic assisted laparoscopic repair left inguinal hernia with mesh; excision left lateral buttock skin lesion
Anesthesia/Sedation to be done by Anesthesia Provider: Yes
[2025-02-14] MEDS: DILAUDID 0.5 MG IV (12:12)
--- NOTE | 2025-02-14 12:17 | W.IMMPOSTOP ---
Addendum entered and electronically signed by Manuel Santacruz MD 02/24/25 09:02:
#[id number]
Original Note:
Surgical Immed Post Op Note
-
Primary Surgeon: Manuel Santacruz MD
Assisting Surgeon: Kely David PA-C
Pre-op Diagnosis: Left inguinal hernia. Left gluteal skin lesion
Post-op Diagnosis: Left inguinal hernia, direct; left gluteal skin lesion 4.5 cm
Procedure Performed: Robotic assisted laparoscopic MICHELA repair left inguinal hernia with mesh; 3D max large mid weight
Excision left gluteal skin lesion 4.5 cm;
Anesthesia Type: GETA +0.25% Marcaine with epi
Specimen / Cultures: Left gluteal skin lesion
Estimated Blood Loss: 8 mL
Complications: None immediate
Operative Findings: Significant size left direct inguinal hernia however occurring lateral to inferior epigastric vessels but not through internal ring. Lipomatous tissue of inguinal canal reduced and excised. 3D max large mid weight mesh repair
secured to Rudi's ligament with 2-0 Vicryl stitch x 2. Peritoneal flap closed with 2-0 Monocryl STRATAFIX. Superficial left gluteal skin lesion excised to grossly negative margins, 4.5 cm maximal length of incision. Multilayer closure with 3-0
Vicryl and 4-0 Monocryl.
The assistance of Kely David PA-C was required due to the complexity of the procedure. During the procedure Kely David PA-C assisted with port placement, robotic instrumentation and suture material exchanges, and closure of the surgical incision
sites. I was present for the entirety of the operative procedure.
== END 2025-02-14 14:32 | disposition home or self-care (01) ==
LOC: SDS 06:17
PROVIDERS: ATTENDING PHYSICIAN Surgery; FAMILY PHYSICIAN Nurse Practitioner Family
DX: K40.90 Unilateral inguinal hernia, without obstruction or gangrene, not specified as recurrent (principal); L98.9 Disorder of the skin and subcutaneous tissue, unspecified; D18.01 Hemangioma of skin and subcutaneous tissue
CPT/HCPCS: 49650; 11406; 12032; 88304; 36415; 80048; 85027; 93005; C1781

== ENCOUNTER → 2025-07-24 13:20 | Outpatient (REF) | payer OTHER, SELFPAY | LOC: HWRAD 13:20 | PROVIDERS: ATTENDING PHYSICIAN Nurse Practitioner Family | DX: G89.29 Other chronic pain (principal); M25.561 Pain in right knee; M25.562 Pain in left knee | CPT/HCPCS: 73564 ==

== ENCOUNTER → 2025-08-06 07:28 | Outpatient (REF) | payer OTHER, SELFPAY | LOC: MRI 3T 07:28 | PROVIDERS: ATTENDING PHYSICIAN Internal Medicine Hematology & Oncology; FAMILY PHYSICIAN Nurse Practitioner Family | DX: D48.114 Desmoid tumor, intraabdominal (principal) | CPT/HCPCS: 74183; A9575 ==